=== PATIENT | female | born 1970 | race Caucasian/White ===

== ENCOUNTER 2016-08-30 21:06 | Inpatient (IN) | payer BC ==
[~2016-08-30] VITALS: Ht 167.6 cm; Wt 87.4 kg
[2016-08-30] MEDS ORDERED: MAGNEVIST 20ML IV ONE (22:32)
[2016-08-30] MEDS ORDERED: DEXTROSE 50% SYRINGE 50 ML IV PRN (22:45)
[2016-08-30] MEDS ORDERED: MAG HYDROX 30 ML UDC PO PRN (22:45)
[2016-08-30] MEDS ORDERED: ALU/MAG/SIM 30 ML UDC PO PRN (22:45)
[2016-08-30] MEDS ORDERED: BISACODYL 10 MG SUPP RECTAL PRN (22:45)
[2016-08-30] MEDS ORDERED: ACETAMINOPHEN 325 MG TAB PO PRN (22:45)
[2016-08-30] MEDS ORDERED: GLUCAGON 1 MG VIAL IM PRN (22:45)
[2016-08-30] MEDS ORDERED: SALINE FLUSH 10 ML FLUSH PRN (22:45)
[2016-08-30] MEDS ORDERED: BISACODYL EC 5 MG TAB PO PRN (22:45)
[2016-08-31] VITALS (9 sets, daily range): BP systolic 116–150; RESP 16–20; TEMP 97.4–98.4; BMI 31.1
[2016-08-31] MEDS ORDERED: SODIUM CHLORIDE 0.9% FLUSH BAG 500 ML IV SCH (06:00)
[2016-08-31] MEDS ORDERED: SALINE FLUSH 10 ML FLUSH SCH (08:00)
[2016-08-31] MEDS: LISINOPRIL 10 MG TAB PO SCH (08:48)
[2016-08-31] MEDS ORDERED: DEXTROSE 50% SYRINGE 50 ML IV PRN (10:40)
[2016-08-31] MEDS ORDERED: GLUCAGON 1 MG VIAL IM PRN (10:40)
[2016-08-31] MEDS ORDERED: ACETAMINOPHEN 325 MG TAB PO PRN (10:40)
[2016-08-31] MEDS ORDERED: SALINE FLUSH 10 ML FLUSH PRN (10:40)
[2016-08-31] MEDS ORDERED: LEVEMIR INSULIN SUBQ ONE (11:05)
[2016-08-31] MEDS: FAMOTIDINE 20 MG TAB PO SCH ×2 (11:17→20:56)
[2016-08-31] MEDS: Aspirin 325 MG TAB PO SCH (11:17)
[2016-08-31] MEDS: POLYETHYLENE GLYCOL 17 GM PACKET PO SCH (11:17)
[2016-08-31] MEDS ORDERED: KCL CR 20 MEQ TAB PO ONE (11:20)
[2016-08-31] MEDS: Atorvastatin 40 MG TAB PO SCH (20:56)
[2016-08-31] MEDS: SALINE FLUSH 10 ML FLUSH SCH (20:57)
[2016-08-31] MEDS ORDERED: Atorvastatin 20 MG TAB PO SCH (21:00)
[2016-09-01 03:09] VITALS: BP_SYST 121; RESP 18; TEMP 97.7
[2016-09-01] MEDS: SODIUM CHLORIDE 0.9% FLUSH BAG 500 ML IV SCH (05:05)
[2016-09-01 07:49] VITALS: BP_SYST 148; RESP 18; TEMP 97.6
[2016-09-01] MEDS: LEVEMIR INSULIN SUBQ SCH (08:28)
[2016-09-01] MEDS: FAMOTIDINE 20 MG TAB PO SCH ×2 (08:29→20:41)
[2016-09-01] MEDS: Aspirin 325 MG TAB PO SCH (08:30)
[2016-09-01] MEDS: POLYETHYLENE GLYCOL 17 GM PACKET PO SCH (08:30)
[2016-09-01] MEDS: LISINOPRIL 10 MG TAB PO SCH (08:30)
[2016-09-01] MEDS: SALINE FLUSH 10 ML FLUSH SCH ×2 (08:31→20:41)
[2016-09-01 11:58] VITALS: BP_SYST 123; RESP 18; TEMP 97.6
[2016-09-01] MEDS ORDERED: SODIUM CHLORIDE 0.9% 250 ML IV ONE (16:00)
[2016-09-01 16:13] VITALS: BP_SYST 136; RESP 18; TEMP 97.7
[2016-09-01 19:20] VITALS: BP_SYST 112; RESP 18; TEMP 98.2
[2016-09-01] MEDS: Atorvastatin 40 MG TAB PO SCH (20:41)
[2016-09-01 22:54] VITALS: BP_SYST 130; RESP 18; TEMP 98.3
[2016-09-02 03:47] VITALS: BP_SYST 110; RESP 18; TEMP 97.8
[2016-09-02] MEDS: SODIUM CHLORIDE 0.9% FLUSH BAG 500 ML IV SCH (05:35)
[2016-09-02 08:23] VITALS: BP_SYST 126; RESP 18; TEMP 97.9
[2016-09-02] MEDS: SALINE FLUSH 10 ML FLUSH SCH (08:25)
[2016-09-02] MEDS: LEVEMIR INSULIN SUBQ SCH (08:26)
[2016-09-02] MEDS: LISINOPRIL 10 MG TAB PO SCH (08:27)
[2016-09-02] MEDS: FAMOTIDINE 20 MG TAB PO SCH (08:27)
[2016-09-02] MEDS: POLYETHYLENE GLYCOL 17 GM PACKET PO SCH (08:28)
[2016-09-02] MEDS ORDERED: ASPIRIN EC 81 MG TAB PO SCH (09:00)
[2016-09-02 11:49] VITALS: BP_SYST 122; RESP 18; TEMP 97.8
[2016-09-02 13:21] VITALS: BP_SYST 122; RESP 18; TEMP 97.8
== END 2016-09-02 14:21 | disposition home or self-care (01) | DRG 65 ==
LOC: ENRESERVTM → ENRESERVDT → ENRESERV → ER 21:06 → EMR 22:31 → PCU2 08-31 01:59 → OBSVTOIN 08-31 10:41 → ENPENDDIS 08-31 10:41
PROVIDERS: ADMIT Family Medicine; ATTEND Family Medicine
CPT/HCPCS: 36415; 70450; 70544; 70548; 70553; 71010; 80048; 80053; 80061; 81001; 81241; 82378; 82947; 83036; 83090; 83721; 84439; 84443; 84484; 85025; 85300; 85303; 85306; 85610; 85613; 85730; 85732; 86038; 86141; 86147; 93005; 93306; 94799; 95819; 99233; 99239